=== PATIENT | female | born 1995 | race African-American/Black ===

== ENCOUNTER 2018-06-05 04:26 | Emergency (ER) | payer OTHER ==
[~2018-06-05] VITALS: Ht 170.2 cm; Wt 127.7 kg
[2018-06-05 04:57] LABS: ABSOLUTE BASOPHILS 0.1 thou/uL (0.0-0.2); ABSOLUTE EOSINOPHILS 0.2 thou/uL (0.0-0.7); ABSOLUTE LYMPHOCYTES 2.5 thou/uL (0.8-5.3); ABSOLUTE MONOCYTES 0.6 thou/uL (0.0-1.2); ABSOLUTE NEUTROPHILS 11.6 thou/uL (1.6-8.1); BASOPHILS 0.6 %; EOSINOPHILS 1.2 %; HEMATOCRIT 40.6 % (37.0-47.0); HEMOGLOBIN 12.9 gm/dL (12.0-15.0); LYMPHOCYTES 16.7 %; MCH 25.1 pg (26.0-34.0); MCHC 31.8 g/dL (28.0-37.0); MCV 78.9 fL (80.0-100.0); MONOCYTES 4.3 %; MPV 8.5 fl. (7.2-11.1); NUCLEATED RBCS 0 /100WBC; PLATELET COUNT* 375 thou/uL (150-400); POLYS 77.2 %; RBC 5.14 mil/uL (4.20-5.00); RDW-CV 15.6 % (10.5-14.5)
[2018-06-05 05:15] LABS: ALBUMIN 3.8 g/dL (3.4-5.0); CALCIUM 9.2 mg/dL (8.5-10.1); CREATININE 0.9 mg/dL (0.6-1.3); POTASSIUM 3.9 mmol/L (3.5-5.1); TOTAL BILIRUBIN 0.3 mg/dL (<0.1-1.0); TOTAL PROTEIN 7.6 g/dL (6.4-8.2)
[2018-06-05] MEDS ORDERED: CARAFATE 1 GM TA1 GM PO (06:00)
[2018-06-05] MEDS ORDERED: ZOFRAN ODT4 MG PO (06:00)
[2018-06-05 06:03] LABS: URINE BILIRUBIN NEGATIVE (Negative); URINE BLOOD NEGATIVE (Negative); URINE CLARITY CLEAR; URINE COLOR STRAW; URINE GLUCOSE-RANDOM NEGATIVE (Negative); URINE KETONES NEGATIVE (Negative); URINE LEUKOCYTES-REFLEX NEGATIVE (Negative); URINE NITRITE-REFLEX NEGATIVE (Negative); URINE PROTEIN NEGATIVE (Negative); URINE SPECIFIC GRAVITY 1.025 (1.005-1.030); URINE UROBILINOGEN 0.2 E.U./dl (0.2-1.0)
[2018-06-05 06:08] LABS: AMP/METHAMP Negative (Negative); BARBITURATES Negative (Negative); BENZODIAZEPINES Negative (Negative); COCAINE Negative (Negative); METHADONE Negative (Negative); OPIATES Negative (Negative); PCP Negative (Negative); THC Negative (Negative)
[2018-06-05 06:26] VITALS: BP 148/66
== END 2018-06-05 06:29 | disposition home or self-care (01) ==
LOC: M.ERS 04:26
PROVIDERS: Personal Emergency Response Attendant
DX: K29.70 Gastritis, unspecified, without bleeding (principal); Z88.0 Allergy status to penicillin

== ENCOUNTER 2018-08-15 15:34 | Emergency (ER) | payer OTHER ==
[~2018-08-15] VITALS: Ht 170.2 cm; Wt 106.6 kg
[~2018-08-15 15:34] MED LIST: CARAFATE 1 GM TA1 GM PO; ZOFRAN ODT4 MG PO
[2018-08-15] MEDS ORDERED: FLEXERIL PO (16:10)
[2018-08-15] MEDS ORDERED: IBUPROFEN 800800 M1 PO (16:10)
[2018-08-15] MEDS ORDERED: NORCO 5-325 TA1 EAC1 PO (16:10)
[2018-08-15 16:22] VITALS: BP 153/103
== END 2018-08-15 16:23 | disposition home or self-care (01) ==
LOC: M.ERS 15:34
DX: M54.2 Cervicalgia (principal); M54.6 Pain in thoracic spine; M25.511 Pain in right shoulder

== ENCOUNTER 2018-10-22 13:29 | Emergency (ER) | payer OTHER ==
[~2018-10-22] VITALS: Ht 170.2 cm; Wt 108.9 kg
[~2018-10-22 13:29] MED LIST changes: +FLEXERIL PO; +IBUPROFEN 800800 M1 PO; +NORCO 5-325 TA1 EAC1 PO
[2018-10-22] MEDS ORDERED: BACTRIM DS TAB1 EACH PO (13:56)
[2018-10-22] MEDS ORDERED: KEFLEX500 M1 PO (13:56)
[2018-10-22 14:03] VITALS: BP 142/82
== END 2018-10-22 14:04 | disposition home or self-care (01) ==
LOC: M.ERS 13:29
DX: L03.111 Cellulitis of right axilla (principal); Z88.5 Allergy status to narcotic agent; Z88.0 Allergy status to penicillin